=== PATIENT | female | born 1985 | race American Indian/Alaskan Native ===

== ENCOUNTER 2017-12-21 03:55 | Emergency (ER) | payer MEDICAID ==
[2017-12-21 05:03] LABS: Basophils % (Auto) 0.6 % (0.0-1.8); Eosinophils # (Auto) 0.2 K/mm3 (0.0-0.4); Eosinophils % (Auto) 2.3 % (0.0-4.3); Hematocrit 36.4 % (30.3-42.9); Hemoglobin 12.5 gm/dl (10.1-14.3); Lymphocytes # (Auto) 1.6 K/mm3 (1.2-5.4); Lymphocytes % (Auto) 19.8 % (13.4-35.0); Mean Corpuscular HGB Conc 35 % (30-34); Mean Corpuscular Hemoglobin 27 pg (28-32); Mean Corpuscular Volume 79 fl (79-97); Monocytes # (Auto) 0.9 K/mm3 (0.0-0.8); Monocytes % (Auto) 11.1 % (0.0-7.3); Platelet Count 203 K/mm3 (140-440); Red Cell Distribution Width 15.3 % (13.2-15.2)
[2017-12-21 05:10] LABS: Bacteria,Urine 1+ /HPF (Negative); Bilirubin,Urine NEG (Negative); Blood,Urine NEG (Negative); Color,Urine Yellow (Yellow); Mucus,Urine FEW /HPF; Protein,Urine <15 mg/dL mg/dL (Negative); Urobilinogen,Urine < 2.0 mg/dL (<2.0)
[2017-12-21 05:12] LABS: Amphetamine Screen,Urine PRESUMPTIVE NEGATIVE; Benzodiazepines Screen,Urine PRESUMPTIVE NEGATIVE; Cannabinoid Screen,Urine PRESUMPTIVE NEGATIVE; Cocaine Screen,Urine PRESUMPTIVE NEGATIVE; Methadone Screen,Urine PRESUMPTIVE NEGATIVE; Opiate Screen,Urine PRESUMPTIVE NEGATIVE
[2017-12-21 05:26] LABS: BUN/Creatinine Ratio 18; Blood Urea Nitrogen 14 mg/dL (7-17); Calcium 8.7 mg/dL (8.4-10.2); Hemolysis Index 12
[2017-12-21] MEDS ORDERED: GEODON IM PRN (11:52)
[2017-12-21] MEDS ORDERED: ATIVAN IM PRN (11:52)
--- NOTE | 2017-12-21 12:00 | Emergency Department Report ---
ED Psych HPI - General Chief Complaint: Psych Stated Complaint: MH Time Seen by Provider: 12/21/17 11:51 Source: patient Mode of arrival: Ambulatory - History of Present Illness Initial Comments: This is a 32-year-old female who I presume has a history of schizophrenia. She states that she is at a skilled nursing where they are "giving her nightmares". She thinks that [facility] also has been doing this to her. She states that she was at [facility] between June and 2 days ago. She is obviously not a reliable historian. I do believe she is actually adequate skilled nursing and refusing to take her medicine. She obviously has paranoid ideations, delusions and ideas of reference. She is responding to some internal stimuli during my exam. She has very flat affect. She is in the midst of a paranoid psychosis. She is not terribly agitated at this point. Obviously there is substantial flight risk and she will need to be 1013 and medicated. I have spoken to Britt who is in agreement with this plan. A 1013 has been executed. Complaint: other -: month(s) Associated Psychiatric Symptoms: auditory hallucinations, delusions, other ( paranoid ideation) History of same: No Quality: intermittent Improves With: none Worsens With: none Context: not taking psychiatric Associated Symptoms: denies other symptoms Treatments Prior to Arrival: none If Self Harm: other - Related Data Allergies Allergy/AdvReac Type Severity Reaction Status Date / Time No Known Allergies Allergy Unverified 12/21/17 03:56 ED Review of Systems ROS: Stated complaint: MH Other details as noted in HPI Constitutional: denies: chills, fever Eyes: denies: eye pain, eye discharge, vision change ENT: denies: ear pain, throat pain Respiratory: denies: cough, shortness of breath, wheezing Cardiovascular: denies: chest pain, palpitations Endocrine: no symptoms reported Gastrointestinal: denies: abdominal pain, nausea, diarrhea Genitourinary: denies: urgency, dysuria, discharge Musculoskeletal: denies: back pain, joint swelling, arthralgia Skin: denies: rash, lesions Neurological: denies: headache, weakness, paresthesias Psychiatric: as per HPI. denies: anxiety, depression Hematological/Lymphatic: denies: easy bleeding, easy bruising ED Past Medical Hx - Past Medical History Previous Medical History?: No - Surgical History Past Surgical History?: No - Social History Smoking Status: Never Smoker Substance Use Type: None ED Physical Exam - General Limitations: Other (paranoid psychosis) General appearance: alert, in no apparent distress - Head Head exam: Present: atraumatic, normocephalic - Eye Eye exam: Present: normal appearance, PERRL, EOMI. Absent: scleral icterus - ENT ENT exam: Present: normal exam, mucous membranes moist - Neck Neck exam: Present: normal inspection. Absent: tenderness, meningismus - Respiratory Respiratory exam: Present: normal lung sounds bilaterally. Absent: respiratory distress - Cardiovascular Cardiovascular Exam: Present: regular rate, normal rhythm. Absent: systolic murmur, diastolic murmur, rubs, gallop - GI/Abdominal GI/Abdominal exam: Present: soft, normal bowel sounds. Absent: distended, tenderness, guarding, rebound, rigid - Extremities Exam Extremities exam: Present: normal inspection - Back Exam Back exam: Present: normal inspection - Neurological Exam Neurological exam: Present: alert, oriented X3, CN II-XII intact. Absent: motor sensory deficit - Psychiatric Psychiatric exam: Present: normal mood, flat affect, other (paranoid ideation, responding to internal stimuli. Delusional) - Skin Skin exam: Present: warm, dry, intact, normal color. Absent: rash ED Course Vital Signs 12/21/17 03:54 Temperature 98.0 F Pulse Rate 117 H Respiratory 22 Rate Blood Pressure 103/84 O2 Sat by Pulse 99 Oximetry - Reevaluation(s) Reevaluation #1: 12/21/17 12:00 1013 is executed. Psychiatric medications will be initiated. Awaiting acceptance. ED Medical Decision Making - Lab Data Result diagrams: 12/21/17 04:37 12/21/17 04:37 Laboratory Results - last 24 hr 12/21/17 12/21/17 12/21/17 04:11 04:11 04:37 WBC RBC Hgb Hct MCV MCH MCHC RDW Plt Count Lymph % (Auto) Eddy % (Auto) Eos % (Auto) Baso % (Auto) Lymph # Eddy # Eos # Baso # Seg Neutrophils % Seg Neutrophils # Sodium Potassium Chloride Carbon Dioxide Anion Gap BUN Creatinine Estimated GFR BUN/Creatinine Ratio Glucose Calcium HCG, Qual Urine Color Yellow Urine Turbidity Clear Urine pH 5.0 Ur Specific [place] 1.026 Urine Protein <15 mg/dl Urine Glucose (UA) Neg Urine Ketones Tr Urine Blood Neg Urine Nitrite Neg Urine Bilirubin Neg Urine Urobilinogen < 2.0 Ur Leukocyte Esterase Sm Urine WBC (Auto) 14.0 H Urine RBC (Auto) 1.0 U Epithel Cells (Auto) 12.0 Urine Bacteria (Auto) 1+ Urine Mucus Few Salicylates < 0.3 L Urine Opiates Screen Presumptive negative Urine Methadone Screen Presumptive negative Acetaminophen Ur Barbiturates Screen Presumptive negative Ur Phencyclidine Scrn Presumptive negative Ur Amphetamines Screen Presumptive negative U Benzodiazepines Scrn Presumptive negative Urine Cocaine Screen Presumptive negative U Marijuana (THC) Screen Presumptive negative Drugs of Abuse Note Disclamer Plasma/Serum Alcohol 12/21/17 12/21/17 12/21/17 04:37 04:37 04:37 WBC RBC Hgb Hct MCV MCH MCHC RDW Plt Count Lymph % (Auto) Eddy % (Auto) Eos % (Auto) Baso % (Auto) Lymph # Eddy # Eos # Baso # Seg Neutrophils % Seg Neutrophils # Sodium 137 Potassium 4.0 Chloride 101.6 Carbon Dioxide 23 Anion Gap 16 BUN 14 Creatinine 0.8 Estimated GFR > 60 BUN/Creatinine Ratio 18 Glucose 117 H Calcium 8.7 HCG, Qual Urine Color Urine Turbidity Urine pH Ur Specific [place] Urine Protein Urine Glucose (UA) Urine Ketones Urine Blood Urine Nitrite Urine Bilirubin Urine Urobilinogen Ur Leukocyte Esterase Urine WBC (Auto) Urine RBC (Auto) U Epithel Cells (Auto) Urine Bacteria (Auto) Urine Mucus Salicylates Urine Opiates Screen Urine Methadone Screen Acetaminophen < 5.0 L Ur Barbiturates Screen Ur Phencyclidine Scrn Ur Amphetamines Screen U Benzodiazepines Scrn Urine Cocaine Screen U Marijuana (THC) Screen Drugs of Abuse Note Plasma/Serum Alcohol < 0.01 12/21/17 12/21/17 04:37 04:37 WBC 8.1 RBC 4.60 Hgb 12.5 Hct 36.4 MCV 79 MCH 27 L MCHC 35 H RDW 15.3 H Plt Count 203 Lymph % (Auto) 19.8 Eddy % (Auto) 11.1 H Eos % (Auto) 2.3 Baso % (Auto) 0.6 Lymph # 1.6 Eddy # 0.9 H Eos # 0.2 Baso # 0.0 Seg Neutrophils % 66.2 Seg Neutrophils # 5.4 Sodium Potassium Chloride Carbon Dioxide Anion Gap BUN Creatinine Estimated GFR BUN/Creatinine Ratio Glucose Calcium HCG, Qual Negative Urine Color Urine Turbidity Urine pH Ur Specific [place] Urine Protein Urine Glucose (UA) Urine Ketones Urine Blood Urine Nitrite Urine Bilirubin Urine Urobilinogen Ur Leukocyte Esterase Urine WBC (Auto) Urine RBC (Auto) U Epithel Cells (Auto) Urine Bacteria (Auto) Urine Mucus Salicylates Urine Opiates Screen Urine Methadone Screen Acetaminophen Ur Barbiturates Screen Ur Phencyclidine Scrn Ur Amphetamines Screen U Benzodiazepines Scrn Urine Cocaine Screen U Marijuana (THC) Screen Drugs of Abuse Note Plasma/Serum Alcohol - Medical Decision Making Persistent with contaminated urine Critical care attestation.: If time is entered above; I have spent that time in minutes in the direct care of this critically ill patient, excluding procedure time. ED Disposition Clinical Impression: Paranoid schizophrenia Disposition: DC/TX-65 PSY HOSP/PSY UNIT Is pt being admited?: No Does the pt Need Aspirin: No Condition: Stable Referrals: PRIMARY CARE, [Primary Care Provider] - 3-5 Days Time of Disposition: 12:01
[2017-12-21] MEDS: GEODON PO SCH ×2 (18:17→22:12)
[2017-12-21 23:18] VITALS: BP 149/98
== END 2017-12-21 23:18 ==
LOC: ED 03:55
DX: F20.0 Paranoid schizophrenia (principal)
CPT/HCPCS: 36415; 80048; 80307; 81001; 84703; 85025; 99283; G0480; 80320

== ENCOUNTER 2018-04-28 00:21 | Emergency (ER) | payer MEDICAID ==
[2018-04-28 01:23] LABS: Basophils # (Auto) 0.1 K/mm3 (0.0-0.1); Basophils % (Auto) 1.2 % (0.0-1.8); Eosinophils # (Auto) 0.4 K/mm3 (0.0-0.4); Eosinophils % (Auto) 5.3 % (0.0-4.3); Hematocrit 35.3 % (30.3-42.9); Hemoglobin 11.7 gm/dl (10.1-14.3); Lymphocytes # (Auto) 2.1 K/mm3 (1.2-5.4); Lymphocytes % (Auto) 26.2 % (13.4-35.0); Mean Corpuscular HGB Conc 33 % (30-34); Mean Corpuscular Hemoglobin 27 pg (28-32); Mean Corpuscular Volume 80 fl (79-97); Monocytes # (Auto) 0.4 K/mm3 (0.0-0.8); Monocytes % (Auto) 5.2 % (0.0-7.3); Platelet Count 305 K/mm3 (140-440); Red Blood Count 4.39 M/mm3 (3.65-5.03); Red Cell Distribution Width 15.1 % (13.2-15.2)
[2018-04-28 01:40] LABS: Bilirubin,Urine NEG (Negative); Blood,Urine NEG (Negative); Color,Urine Yellow (Yellow); Mucus,Urine FEW /HPF; Urobilinogen,Urine < 2.0 mg/dL (<2.0)
[2018-04-28 01:40] LABS: BUN/Creatinine Ratio 23; Blood Urea Nitrogen 16 mg/dL (7-17); Calcium 9.2 mg/dL (8.4-10.2)
[2018-04-28 01:41] LABS: Amphetamine Screen,Urine PRESUMPTIVE NEGATIVE; Benzodiazepines Screen,Urine PRESUMPTIVE NEGATIVE; Cannabinoid Screen,Urine PRESUMPTIVE NEGATIVE; Cocaine Screen,Urine PRESUMPTIVE NEGATIVE; Methadone Screen,Urine PRESUMPTIVE NEGATIVE; Opiate Screen,Urine PRESUMPTIVE NEGATIVE
[2018-04-28 01:41] LABS: Hemolysis Index 31
--- NOTE | 2018-04-28 01:42 | Emergency Department Report ---
ED Psych HPI - General Chief Complaint: Medical Clearance Stated Complaint: ALVERTO EVAL Time Seen by Provider: 04/28/18 01:42 Source: patient, EMS Mode of arrival: Ambulatory Limitations: No Limitations - History of Present Illness Initial Comments: Patient was found incoherent and hallucinating. She said she saw someone about to stab her with a knife. Patient is a poor history and she was just rambling with racing thoughts. -: unknown Associated Psychiatric Symptoms: racing thoughts, visual hallucinations Quality: constant Improves With: none Worsens With: none Associated Symptoms: denies other symptoms Treatments Prior to Arrival: none - Related Data Previous Rx's Medication Instructions Recorded Last Taken Type Sulfamethoxazole/Trimethoprim 1 each PO BID #20 tablet 04/28/18 Unknown Rx [Bactrim DS TAB] Allergies Allergy/AdvReac Type Severity Reaction Status Date / Time No Known Allergies Allergy Unverified 12/21/17 03:56 ED Review of Systems ROS: Stated complaint: MH EVAL Other details as noted in HPI Comment: All other systems reviewed and negative Constitutional: denies: chills, fever Eyes: denies: eye pain ENT: denies: ear pain Respiratory: denies: cough, orthopnea, shortness of breath Cardiovascular: denies: chest pain, palpitations, dyspnea on exertion Endocrine: no symptoms reported Gastrointestinal: denies: abdominal pain, nausea, vomiting, diarrhea Genitourinary: denies: urgency, dysuria, frequency Musculoskeletal: denies: back pain, joint swelling Skin: denies: rash, lesions Neurological: denies: headache, weakness, numbness Psychiatric: visual hallucinations. denies: anxiety, depression, auditory hallucinations, homicidal thoughts, suicidal thoughts Hematological/Lymphatic: denies: easy bleeding, easy bruising ED Past Medical Hx - Past Medical History Additional medical history: unknown - Surgical History Additional Surgical History: unknown - Social History Smoking Status: Never Smoker - Medications Home Medications: Home Medications Medication Instructions Recorded Confirmed Last Taken Type Sulfamethoxazole/Trimethoprim 1 each PO BID #20 tablet 04/28/18 Unknown Rx [Bactrim DS TAB] ED Physical Exam - General Limitations: No Limitations General appearance: alert, in no apparent distress, obese - Head Head exam: Present: atraumatic, normocephalic, normal inspection - Eye Eye exam: Present: normal appearance, PERRL, EOMI Pupils: Present: normal accommodation - ENT ENT exam: Present: normal exam, normal orophraynx, mucous membranes moist - Neck Neck exam: Present: normal inspection, full ROM. Absent: tenderness - Respiratory Respiratory exam: Present: normal lung sounds bilaterally. Absent: respiratory distress, wheezes, rales, rhonchi, stridor - Cardiovascular Cardiovascular Exam: Present: regular rate, normal rhythm, normal heart sounds - GI/Abdominal GI/Abdominal exam: Present: soft, normal bowel sounds. Absent: distended, tenderness, guarding, rebound, rigid - Extremities Exam Extremities exam: Present: normal inspection, full ROM, normal capillary refill. Absent: tenderness - Back Exam Back exam: Present: normal inspection, full ROM. Absent: tenderness - Neurological Exam Neurological exam: Present: alert, oriented X3, CN II-XII intact - Psychiatric Psychiatric exam: Present: normal affect, flat affect. Absent: homicidal ideation, suicidal ideation - Skin Skin exam: Present: warm, dry, intact, normal color. Absent: rash ED Course Vital Signs 04/28/18 00:41 Temperature 97.8 F Pulse Rate 96 H Respiratory 18 Rate Blood Pressure 133/85 [Left] O2 Sat by Pulse 100 Oximetry ED Medical Decision Making - Lab Data Result diagrams: 04/28/18 01:07 04/28/18 01:07 Lab Results 04/28/18 04/28/18 04/28/18 Range/Units 01:07 01:07 01:07 WBC (4.5-11.0) K/mm3 RBC (3.65-5.03) M/mm3 Hgb (10.1-14.3) gm/dl Hct (30.3-42.9) % MCV (79-97) fl MCH (28-32) pg MCHC (30-34) % RDW (13.2-15.2) % Plt Count (140-440) K/mm3 Lymph % (Auto) (13.4-35.0) % Dent % (Auto) (0.0-7.3) % Eos % (Auto) (0.0-4.3) % Baso % (Auto) (0.0-1.8) % Lymph # (1.2-5.4) K/mm3 Dent # (0.0-0.8) K/mm3 Eos # (0.0-0.4) K/mm3 Baso # (0.0-0.1) K/mm3 Seg Neutrophils % (40.0-70.0) % Seg Neutrophils # (1.8-7.7) K/mm3 Sodium 140 (137-145) mmol/L Potassium 3.9 (3.6-5.0) mmol/L Chloride 104.7 (98-107) mmol/L Carbon Dioxide 22 (22-30) mmol/L Anion Gap 17 mmol/L BUN 16 (7-17) mg/dL Creatinine 0.7 (0.7-1.2) mg/dL Estimated GFR > 60 ml/min BUN/Creatinine Ratio 23 % Glucose 138 H (65-100) mg/dL Calcium 9.2 (8.4-10.2) mg/dL HCG, Qual (Negative) Urine Color (Yellow) Urine Turbidity (Clear) Urine pH (5.0-7.0) Ur Specific [place] (1.003-1.030) Urine Protein (Negative) mg/dL Urine Glucose (UA) (Negative) mg/dL Urine Ketones (Negative) mg/dL Urine Blood (Negative) Urine Nitrite (Negative) Urine Bilirubin (Negative) Urine Urobilinogen (<2.0) mg/dL Ur Leukocyte Esterase (Negative) Urine WBC (Auto) (0.0-6.0) /HPF Urine RBC (Auto) (0.0-6.0) /HPF U Epithel Cells (Auto) (0-13.0) /HPF Urine Mucus /HPF Salicylates < 0.3 L (2.8-20.0) mg/dL Urine Opiates Screen Urine Methadone Screen Acetaminophen < 5.0 L (10.0-30.0) ug/mL Ur Barbiturates Screen Ur Phencyclidine Scrn Ur Amphetamines Screen U Benzodiazepines Scrn Urine Cocaine Screen U Marijuana (THC) Screen Drugs of Abuse Note Plasma/Serum Alcohol (0-0.07) % 04/28/18 04/28/18 04/28/18 Range/Units 01:07 01:07 01:07 WBC 8.0 (4.5-11.0) K/mm3 RBC 4.39 (3.65-5.03) M/mm3 Hgb 11.7 (10.1-14.3) gm/dl Hct 35.3 (30.3-42.9) % MCV 80 (79-97) fl MCH 27 L (28-32) pg MCHC 33 (30-34) % RDW 15.1 (13.2-15.2) % Plt Count 305 (140-440) K/mm3 Lymph % (Auto) 26.2 (13.4-35.0) % Dent % (Auto) 5.2 (0.0-7.3) % Eos % (Auto) 5.3 H (0.0-4.3) % Baso % (Auto) 1.2 (0.0-1.8) % Lymph # 2.1 (1.2-5.4) K/mm3 Dent # 0.4 (0.0-0.8) K/mm3 Eos # 0.4 (0.0-0.4) K/mm3 Baso # 0.1 (0.0-0.1) K/mm3 Seg Neutrophils % 62.1 (40.0-70.0) % Seg Neutrophils # 5.0 (1.8-7.7) K/mm3 Sodium (137-145) mmol/L Potassium (3.6-5.0) mmol/L Chloride (98-107) mmol/L Carbon Dioxide (22-30) mmol/L Anion Gap mmol/L BUN (7-17) mg/dL Creatinine (0.7-1.2) mg/dL Estimated GFR ml/min BUN/Creatinine Ratio % Glucose (65-100) mg/dL Calcium (8.4-10.2) mg/dL HCG, Qual Negative (Negative) Urine Color (Yellow) Urine Turbidity (Clear) Urine pH (5.0-7.0) Ur Specific [place] (1.003-1.030) Urine Protein (Negative) mg/dL Urine Glucose (UA) (Negative) mg/dL Urine Ketones (Negative) mg/dL Urine Blood (Negative) Urine Nitrite (Negative) Urine Bilirubin (Negative) Urine Urobilinogen (<2.0) mg/dL Ur Leukocyte Esterase (Negative) Urine WBC (Auto) (0.0-6.0) /HPF Urine RBC (Auto) (0.0-6.0) /HPF U Epithel Cells (Auto) (0-13.0) /HPF Urine Mucus /HPF Salicylates (2.8-20.0) mg/dL Urine Opiates Screen Urine Methadone Screen Acetaminophen (10.0-30.0) ug/mL Ur Barbiturates Screen Ur Phencyclidine Scrn Ur Amphetamines Screen U Benzodiazepines Scrn Urine Cocaine Screen U Marijuana (THC) Screen Drugs of Abuse Note Plasma/Serum Alcohol < 0.01 (0-0.07) % 04/28/18 04/28/18 Range/Units 01:12 01:12 WBC (4.5-11.0) K/mm3 RBC (3.65-5.03) M/mm3 Hgb (10.1-14.3) gm/dl Hct (30.3-42.9) % MCV (79-97) fl MCH (28-32) pg MCHC (30-34) % RDW (13.2-15.2) % Plt Count (140-440) K/mm3 Lymph % (Auto) (13.4-35.0) % Dent % (Auto) (0.0-7.3) % Eos % (Auto) (0.0-4.3) % Baso % (Auto) (0.0-1.8) % Lymph # (1.2-5.4) K/mm3 Dent # (0.0-0.8) K/mm3 Eos # (0.0-0.4) K/mm3 Baso # (0.0-0.1) K/mm3 Seg Neutrophils % (40.0-70.0) % Seg Neutrophils # (1.8-7.7) K/mm3 Sodium (137-145) mmol/L Potassium (3.6-5.0) mmol/L Chloride (98-107) mmol/L Carbon Dioxide (22-30) mmol/L Anion Gap mmol/L BUN (7-17) mg/dL Creatinine (0.7-1.2) mg/dL Estimated GFR ml/min BUN/Creatinine Ratio % Glucose (65-100) mg/dL Calcium (8.4-10.2) mg/dL HCG, Qual (Negative) Urine Color Yellow (Yellow) Urine Turbidity Cloudy (Clear) Urine pH 5.0 (5.0-7.0) Ur Specific [place] 1.030 (1.003-1.030) Urine Protein 30 mg/dl (Negative) mg/dL Urine Glucose (UA) Neg (Negative) mg/dL Urine Ketones Neg (Negative) mg/dL Urine Blood Neg (Negative) Urine Nitrite Neg (Negative) Urine Bilirubin Neg (Negative) Urine Urobilinogen < 2.0 (<2.0) mg/dL Ur Leukocyte Esterase Lg (Negative) Urine WBC (Auto) 97.0 H (0.0-6.0) /HPF Urine RBC (Auto) 7.0 (0.0-6.0) /HPF U Epithel Cells (Auto) 67.0 H (0-13.0) /HPF Urine Mucus Few /HPF Salicylates (2.8-20.0) mg/dL Urine Opiates Screen Presumptive negative Urine Methadone Screen Presumptive negative Acetaminophen (10.0-30.0) ug/mL Ur Barbiturates Screen Presumptive negative Ur Phencyclidine Scrn Presumptive negative Ur Amphetamines Screen Presumptive negative U Benzodiazepines Scrn Presumptive negative Urine Cocaine Screen Presumptive negative U Marijuana (THC) Screen Presumptive negative Drugs of Abuse Note Disclamer Plasma/Serum Alcohol (0-0.07) % - Medical Decision Making Patient is medically cleared for psychiatric evaluation. Critical care attestation.: If time is entered above; I have spent that time in minutes in the direct care of this critically ill patient, excluding procedure time. ED Disposition Clinical Impression: Delusion, Visual hallucinations UTI (urinary tract infection) Qualifiers: Urinary tract infection type: acute cystitis Hematuria presence: without hematuria Qualified Code(s): N30.00 - Acute cystitis without hematuria Disposition: DC/TX-65 PSY HOSP/PSY UNIT Is pt being admited?: No Does the pt Need Aspirin: No Condition: Stable Instructions: Urinary Tract Infection in Women (ED) Prescriptions: Sulfamethoxazole/Trimethoprim [Bactrim DS TAB] 1 each PO BID #20 tablet Referrals: PRIMARY CARE, [Primary Care Provider] - 3-5 Days Time of Disposition: 04:59
[2018-04-28] MEDS ORDERED: BACTRIM DS PO ONE (02:20)
--- NOTE | 2018-04-28 17:06 | Consultation ---
History of Present Illness - Reason for Consult Consult date: 04/28/18 Reason for consult: psychiatric evaluation/1013 - Chief Complaint Chief complaint: "Manisha is an evil woman." - History of Present Psychiatric Illness Ms. Megan Miramontes is a 33 year old AA female seen for psychiatric evaluation in the ER. She was found incoherent and displaying signs of psychosis. She is observed responding to internal stimuli. She denies all psychiatric complaints. She states she was at [facility] for 4 months and does not know why. She states she went from [facility] to a assisted with Manisha Cuellar. She states "they killed her." She also reports she is not Megan Miramontes. She states she receives money because she works for the [employer] and also performs [email or web address] as a profession. She denies taking medication. She would not admit to ever taking psych meds. Medications and Allergies Allergies Allergy/AdvReac Type Severity Reaction Status Date / Time No Known Allergies Allergy Unverified 12/21/17 03:56 Home Medications Medication Instructions Recorded Confirmed Last Taken Type Sulfamethoxazole/Trimethoprim 1 each PO BID #20 tablet 04/28/18 Unknown Rx [Bactrim DS TAB] Past psychiatric history - Past Medical History Past Medical History: No medical history (denies), other - past Psychiatric treatment and history Psych: Psychosis psychiatric treatment history: at [facility] x 4 months recently. - Social History Social history: other (assisted) Mental Status Exam - Vital signs Last Vital Signs Temp 98.4 F 04/28/18 10:00 Pulse 104 H 04/28/18 10:00 Resp 18 04/28/18 00:41 BP 111/66 04/28/18 10:00 Pulse Ox 98 04/28/18 10:00 - Exam Orientation: person Affect: agitated Mood: congruent with affect Thought content: delusions, grandiose, paranoia Thought Process: Disorganized Perceptions: other (responding to internal stimuli) Speech: normal rate and pattern Concentration: distractible Motor activity: restless Level of consciousness: alert Interaction: irritable Results Result Diagrams: 04/28/18 01:07 04/28/18 01:07 Abnormal lab results 04/28/18 04/28/18 04/28/18 Range/Units 01:07 01:07 01:07 MCH (28-32) pg Eos % (Auto) (0.0-4.3) % Glucose 138 H (65-100) mg/dL Urine WBC (Auto) (0.0-6.0) /HPF U Epithel Cells (Auto) (0-13.0) /HPF Salicylates < 0.3 L (2.8-20.0) mg/dL Acetaminophen < 5.0 L (10.0-30.0) ug/mL 04/28/18 04/28/18 Range/Units 01:07 01:12 MCH 27 L (28-32) pg Eos % (Auto) 5.3 H (0.0-4.3) % Glucose (65-100) mg/dL Urine WBC (Auto) 97.0 H (0.0-6.0) /HPF U Epithel Cells (Auto) 67.0 H (0-13.0) /HPF Salicylates (2.8-20.0) mg/dL Acetaminophen (10.0-30.0) ug/mL All other labs normal. Assessment and Plan Assessment and plan: Impression: psychosis unspecified. She is responding to internal stimuli. Paranoid and grandiose delusions present. Urine drug screen is negative. Plan- start zyprexa zydis 5mg hs for psychosis She lacks insight into her mental illness and was not willing to discuss medication or the effects. Continue 1013 and transfer to inpatient psychiatric facility likely history of schizophrenia or schizoaffective disorder Staffed with Dr. Harsh Ortiz.
--- NOTE | 2018-04-29 16:50 | Progress Note ---
Subjective - Reason for Consult Consult date: 04/29/18 Reason for consult: follow up - Chief Complaint Chief complaint: "I want to conceive." Ms. Megan Miramontes is a 33 year old AA female seen for psychiatric evaluation in the ER. She was found incoherent and displaying signs of psychosis. She is observed responding to internal stimuli. She denies all psychiatric complaints. She states she was at [facility] for 4 months and does not know why. She acknowledged taking medication last night (zyprexa). She denied side effects. She states she slept well. She is completing her ADLs. There are no reports of aggressive behavior. Mental Status Exam - Vital signs Last Vital Signs Temp 98.6 F 04/29/18 09:58 Pulse 104 H 04/29/18 09:58 Resp 18 04/29/18 09:58 BP 119/68 04/29/18 09:58 Pulse Ox 96 04/29/18 09:58 - Exam Narrative exam: - Exam Orientation: person Affect: agitated Mood: congruent with affect Thought content: delusions, grandiose, paranoia Thought Process: Disorganized Perceptions: other (responding to internal stimuli) Speech: normal rate and pattern Concentration: distractible Motor activity: restless Level of consciousness: alert Interaction: irritable Assessment and Plan Impression: psychosis unspecified. She is responding to internal stimuli. Paranoid and grandiose delusions present. Urine drug screen is negative. Plan- continue zyprexa zydis 5mg po hs for psychosis She lacks insight into her mental illness and was not willing to discuss medication or the effects. Continue 1013 and transfer to inpatient psychiatric facility likely history of schizophrenia or schizoaffective disorder Staffed with Dr. Harsh Ortiz.
[2018-04-30] MEDS ORDERED: BACTRIM DS PO SCH (10:00)
--- NOTE | 2018-04-30 11:04 | Progress Note ---
Subjective - Reason for Consult Consult date: 04/30/18 Reason for consult: Psychiatry Follow-up - Chief Complaint Chief complaint: "What do you want" 33 year old AA female seen for psychiatric evaluation in the ER. She was found incoherent and displaying signs of psychosis. This patient is known to me. Today the patient is disorganized and tangent during the assessment. She had to be redirected several times to keep her on topic. She paused several times throughout the interview, possibly responding to some type of stimuli. No indications of side effects of her medication. Mental Status Exam - Vital signs Last Vital Signs Temp 98.6 F 04/29/18 19:32 Pulse 90 04/29/18 19:32 Resp 19 04/29/18 19:32 BP 139/91 04/29/18 19:32 Pulse Ox 100 04/29/18 19:32 - Exam Narrative exam: MSE: Appearance: calm Behavior: regular eye contact Speech: regular rate and tone Mood: labile Affect: congruent to mood Thought Process: disorganized, tangent Thought Content: denies SI/HI's and AVH's, grandiose Motor Activity: sitting up in the bed Cognition: A/O x 3 Insight: poor Judgment: poor Assessment and Plan Impression: Unspecified Psychosis. Today the patient is disorganized and tangent during the assessment. The patient is experiencing perceptual disturbances. DDx: Schizophrenia, Schizoaffective DO, R/O Bipolar DO with psychosis Recommendation/Plan: Continue 1013 and increase Zyprexa Zydis to 10 mg PO HS. Attempted to discuss possible metabolic side effects of Zyprexa with the patient. Dispo: The patient has been referred to inpatient psy services. Staffed with Dr. Tri Ortiz.
[2018-04-30] MEDS ORDERED: ATIVAN PO ONE (18:15)
[2018-05-01 02:03] VITALS: BP 113/66
[2018-05-01] MEDS ORDERED: GEODON IM ONE (09:56)
[2018-05-01] MEDS ORDERED: WATER FOR INJ (PF) ONE (09:57)
--- NOTE | 2018-05-01 11:17 | Progress Note ---
Subjective - Reason for Consult Consult date: 05/01/18 Reason for consult: Psychiatry Follow-up - Chief Complaint Chief complaint: "Yes" 33 year old AA female seen for psychiatric evaluation in the ER. She was found incoherent and displaying signs of psychosis. This patient is known to me. Today the patient is still disorganized and tangent during the assessment. She has loose associations throughout the interview. She was observed pacing in her room, possibly responding to some type of stimuli. No gestures of SI/HI's. No indications of side effects of her medication. Mental Status Exam - Vital signs Last Vital Signs Temp 97.6 F 04/30/18 20:00 Pulse 83 04/30/18 20:00 Resp 18 04/30/18 23:30 BP 113/66 04/30/18 20:00 Pulse Ox 95 04/30/18 23:30 - Exam Narrative exam: MSE: Appearance: calm Behavior: regular eye contact Speech: regular rate and tone Mood: labile Affect: congruent to mood Thought Process: disorganized, tangent, loose associations Thought Content: no gestures of SI/HI's and AVH's, grandiose Motor Activity: sitting up in the bed Cognition: A/O x 3 Insight: poor Judgment: poor Assessment and Plan Impression: Unspecified Psychosis. Today the patient is stil disorganized and tangent during the assessment. The patient is experiencing perceptual disturbances. DDx: Schizophrenia, Schizoaffective DO, R/O Bipolar DO with psychosis Recommendation/Plan: Continue 1013 and Zyprexa Zydis 10 mg PO HS. Attempted to discuss possible metabolic side effects of Zyprexa with the patient. Dispo: The patient has been referred to inpatient psy services. Will staffed with Dr. Tri Ortiz.
[2018-05-01] MEDS ORDERED: GEODON IM PRN (15:27)
== END 2018-05-01 17:00 ==
LOC: ED 00:21 → EEVIPCON 00:21 → ED 05-01 17:00
DX: F23 Brief psychotic disorder (principal); F22 Delusional disorders; R44.1 Visual hallucinations; N30.00 Acute cystitis without hematuria
CPT/HCPCS: 36415; 80048; 80307; 81001; 84703; 85025; 87086; 99285; G0480; J3486; 80320